=== PATIENT | male | born 1980 | race Two or more races ===

== ENCOUNTER 2017-06-25 09:36 | Emergency (ER) | payer OTHER ==
[2017-06-25 09:43] VITALS: BP 123/73; PULSE 76; TEMP 97.8; BMI 24.4
[2017-06-25] MEDS ORDERED: CYCLOBENZAPRINE HCL 10 MG TABLET (FP) PO ONE (11:22)
[2017-06-25] MEDS ORDERED: KETOROLAC TROMETHAMINE 60 MG/2 ML VIAL IM ONE (11:22)
[2017-06-25] MEDS ORDERED: KETOROLAC TROMETHAMINE 60 MG/2 ML VIAL ONE (11:24)
[2017-06-25] MEDS ORDERED: CYCLOBENZAPRINE HCL 10 MG TABLET (FP) ONE (11:24)
--- NOTE | 2017-06-25 11:37 | PDOC ---
History of Present Illness - General Chief Complaint: Back Pain Stated Complaint: PAIN/ NECK, BACK Time Seen by Provider: 06/25/17 11:15 History Source: Patient - History of Present Illness Occurred: reports: yesterday Severity: reports: moderate Pain Location: reports: neck Past History - Past Medical History Allergies/Adverse Reactions: Allergies Allergy/AdvReac Type Severity Reaction Status Date / Time No Known Allergies Allergy Verified 06/25/17 09:41 Home Medications: Ambulatory Orders Cyclobenzaprine HCl [Flexeril 10 mg] 10 mg PO TID PRN #9 tablet 06/25/17 Ibuprofen [Motrin -] 600 mg PO QID #28 tablet 06/25/17 Other medical history: none - Suicide/Smoking/Psychosocial Hx Smoking History: Current some day smoker Have you smoked in the past 12 months: Yes Number of Cigarettes Smoked Daily: 2 Information on smoking cessation initiated: Yes 'Breaking Loose' booklet given: 03/13/16 Hx Alcohol Use: No Drug/Substance Use Hx: No Substance Use Type: None Review of Systems - Review of Systems Constitutional: No: Chills, Fever Musculoskeletal: Yes: Neck Pain Neurological: No: Numbness, Tingling, Weakness *Physical Exam - Vital Signs Last Vital Signs Temp Pulse Resp BP Pulse Ox 97.8 F 76 18 123/73 100 06/25/17 09:41 06/25/17 09:41 06/25/17 09:41 06/25/17 09:41 06/25/17 09:41 - Physical Exam General Appearance: Yes: Appropriately Dressed. No: Apparent Distress HEENT: positive: Normal Voice Neck: positive: Supple Respiratory/Chest: negative: Respiratory Distress Musculoskeletal: positive: Normal Inspection, Other (ttp over R and L trapezius w/ pain to R neck when turning head to the R, upper extremity strength intact b/ l) Integumentary: positive: Dry, Warm Neurologic: positive: Fully Oriented, Alert, Normal Mood/Affect ED Treatment Course - Medications Given in the ED: ED Medications Discontinued Medications Generic Name Dose Route Start Last Admin Trade Name Freq PRN Reason Stop Dose Admin Cyclobenzaprine HCl 10 mg 06/25/17 11:22 06/25/17 11:27 Flexeril - PO 06/25/17 11:23 10 mg ONCE ONE Administration Ketorolac Tromethamine 60 mg 06/25/17 11:22 06/25/17 11:27 Toradol Injection - IM 06/25/17 11:23 60 mg ONCE ONE Administration Medical Decision Making - Medical Decision Making 06/25/17 11:40 37-year-old male, no significant history, 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 No upper extremity sensory changes or weakness. Has not taking anything for pain. Has had similar pain in he past. See exam Neck strain No red flags at this time -Dc w/ pain control and instructions to rest until symptoms resolve 06/25/17 11:49 06/25/17 11:49 06/25/17 11:54 *DC/Admit/Observation/Transfer Diagnosis at time of Disposition: Neck strain Qualifiers: Encounter type: initial encounter Qualified Code(s): S16.1XXA - Strain of muscle, fascia and tendon at neck level, initial encounter - Discharge Dispostion Disposition: HOME Condition at time of disposition: Good - Prescriptions Prescriptions: Cyclobenzaprine HCl [Flexeril 10 mg] 10 mg PO TID PRN #9 tablet PRN Reason: Back Pain Ibuprofen [Motrin -] 600 mg PO QID #28 tablet - Referrals Referrals: Kalen Echevarria MD [Primary Care Provider] - - Patient Instructions Printed Discharge Instructions: Muscle Strain Additional Instructions: Take medications as prescribed and rest. If pain persists, please follow-up with your PMD - Post Discharge Activity Work/School Note: Back to Work
== END 2017-06-25 11:43 | disposition home or self-care (01) ==
LOC: JERFT 09:36
PROC: 3E0233Z Introduction of Anti-inflammatory into Muscle, Percutaneous Approach (ICD-10-PCS; principal; 2017-06-25)
DX: S16.1XXA Strain of muscle, fascia and tendon at neck level, initial encounter (principal); X50.0XXA Overexertion from strenuous movement or load, initial encounter; Y93.75 Activity, martial arts; Y92.39 Other specified sports and athletic area as the place of occurrence of the external cause; Y99.8 Other external cause status
CPT/HCPCS: 99281-25

== ENCOUNTER 2018-01-28 10:20 | Emergency (ER) | payer OTHER ==
[2018-01-28 10:25] VITALS: BP 115/78; PULSE 93; TEMP 98.2; BMI 23.9
[2018-01-28] MEDS ORDERED: KETOROLAC TROMETHAMINE 60 MG/2 ML VIAL IM ONE (11:21)
--- NOTE | 2018-01-28 11:22 | PDOC ---
History of Present Illness - General Chief Complaint: Back Pain Stated Complaint: BACK PAIN Time Seen by Provider: 01/28/18 10:48 Past History - Past Medical History Allergies/Adverse Reactions: Allergies Allergy/AdvReac Type Severity Reaction Status Date / Time No Known Allergies Allergy Verified 01/28/18 10:23 Home Medications: Ambulatory Orders Cyclobenzaprine HCl [Flexeril -] 10 mg PO HS #10 tablet 01/28/18 Ibuprofen 800 mg PO TID #30 tablet 01/28/18 COPD: No - Suicide/Smoking/Psychosocial Hx Smoking History: Current every day smoker Have you smoked in the past 12 months: Yes Number of Cigarettes Smoked Daily: 2 Information on smoking cessation initiated: Yes 'Breaking Loose' booklet given: 01/28/18 Hx Alcohol Use: Yes (SOCIAL) Drug/Substance Use Hx: No Substance Use Type: None *Physical Exam - Vital Signs Last Vital Signs Temp Pulse Resp BP Pulse Ox 98.2 F 93 H 18 115/78 100 01/28/18 10:23 01/28/18 10:23 01/28/18 10:23 01/28/18 10:23 01/28/18 10:23 *DC/Admit/Observation/Transfer Diagnosis at time of Disposition: Neck pain - Discharge Dispostion Disposition: HOME Condition at time of disposition: Stable Admit: No - Referrals Referrals: Kalen Echevarria MD [Primary Care Provider] - Jefe Alvarado MD [Staff Physician] - - Patient Instructions Printed Discharge Instructions: DI for Thoracic Back Pain Additional Instructions: You have upper back pain due to a muscle spasm. Please take ibuprofen 800 mg 3 times a day not to exceed 3000 mg a day. You were also prescribed Flexeril. Please take this medication every 8 hours for the first day. Then take the medication before you go to bed. Do not drive after taking this medication as it may make you sleepy. You may use warm compresses on your back to help with her symptoms. Please follow-up with your primary care doctor. If your symptoms do not resolve in 3-5 days, follow-up with orthopedics. A referral has been provided for you. Return to the emergency department if you have worsening back pain, bladder or bowel incontinence, numbness and tingling in her legs, changes in the way you walk, or any new or worsening symptoms. - Post Discharge Activity Forms/Work/School Notes: Back to Work
[2018-01-28] MEDS ORDERED: KETOROLAC TROMETHAMINE 60 MG/2 ML VIAL ONE (11:24)
== END 2018-01-28 13:30 | disposition home or self-care (01) ==
LOC: JERFT 10:20
PROC: 3E0233Z Introduction of Anti-inflammatory into Muscle, Percutaneous Approach (ICD-10-PCS; principal; 2018-01-28)
DX: M54.2 Cervicalgia (principal)
CPT/HCPCS: 72050-TC-FY; 72070-TC-FY; 99281-25

== ENCOUNTER 2018-07-29 21:38 | Emergency (ER) | payer OTHER ==
[2018-07-29 21:47] VITALS: BP 133/88; PULSE 80; TEMP 98.9; BMI 23.6
--- NOTE | 2018-07-29 21:47 | PDOC ---
Rapid Medical Evaluation Chief Complaint: Injury Time Seen by Provider: 07/29/18 21:45 Medical Evaluation: Allergies Allergy/AdvReac Type Severity Reaction Status Date / Time No Known Allergies Allergy Verified 01/28/18 10:23 07/29/18 21:45 I have performed a brief in-person evaluation of this patient. The patient presents with a chief complaint of:R knee twisting injury at work tonight Pertinent physical exam findings:unremarkable I have ordered the following:nothing The patient will proceed to the ED for further evaluation. Discharge Disposition - Diagnosis Knee sprain Qualifiers: Encounter type: initial encounter Involved ligament of knee: unspecified ligament Laterality: right Qualified Code(s): S83.91XA - Sprain of unspecified site of right knee, initial encounter - Referrals Referrals: Kalen Echevarria MD [Primary Care Provider] - - Patient Instructions - Post Discharge Activity
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
== END 2018-07-30 01:10 | disposition home or self-care (01) ==
LOC: JER 21:38 → JERFT 21:38 → JER 07-30 01:10
DX: S83.8X1A Sprain of other specified parts of right knee, initial encounter (principal); W50.0XXA Accidental hit or strike by another person, initial encounter; Y93.89 Activity, other specified; Y92.118 Other place in children's home and orphanage as the place of occurrence of the external cause; Y99.0 Civilian activity done for income or pay
CPT/HCPCS: 73560-TC-RT-FY; 99283-25